=== PATIENT | female | born 1940 | race African-American/Black ===

== ENCOUNTER → 2020-03-22 | Emergency (ER) | payer MEDICARE, OTHER ==
[~2020-03-22] VITALS: Ht 172.7 cm; Wt 77.1 kg
[~2020-03-22] MED LIST: POTASSIUM CHL 20 Meq TABLET PO ONE
[2020-03-22 20:17] LABS: Basophils # (auto) 0 10 ^3/uL (0-0.2); Basophils % (auto) 0.1 % (0.0-2.0); Eosinophils # (auto) 0.1 10 ^3/uL (0-0.8); Eosinophils % (auto) 1.1 % (0.0-7.0); Hematocrit 43.7 % (36.0-46.0); Lymphocytes # (auto) 2.8 10 ^3/uL (0.4-5.4); Lymphocytes % (auto) 33.2 % (10.0-50.0); Mean Corpuscular Hemoglobin 28.6 pg (28.0-32.0); Mean Corpuscular Hgb Conc. 32.1 g/dL (32.0-36.0); Mean Corpuscular Volume 89.1 fL (80.0-100.0); Monocytes # (auto) 0.6 10 ^3/uL (0-1.3); Monocytes % (auto) 6.6 % (0.0-12.0); Neutrophils # (auto) 4.9 10 ^3/uL (1.6-8.6); Platelet Count (auto) 233 10^3/uL (140-450); Red Cell Distribution Width 13.8 % (11.8-14.3); White Blood Cell 8.3 10^3/uL (4.4-10.8)
[2020-03-22 20:31] LABS: INR 1.06 (0.9-1.15); Partial Thromboplastin Time 29.3 sec (23.64-32.05)
[2020-03-22 20:34] LABS: Albumin 4.1 g/dL (3.4-5.0); Anion Gap 5 (5-15); Blood Urea Nitrogen 8 mg/dL (7-18); Calcium 8.5 mg/dL (8.5-10.1); Carbon Dioxide 30 mmol/L (21-32); Chloride 101 mmol/L (98-107); Glucose 131 mg/dL (74-106); Magnesium 2.4 mg/dL (1.6-2.6); Potassium 3.1 mmol/L (3.5-5.1); Sodium 136 mmol/L (136-145)
[2020-03-22 20:40] LABS: Alanine Aminotransferase 28 U/L (13-56); Alkaline Phosphatase 96 U/L (45-117); Aspartate Aminotransferase 23 U/L (15-37); BUN/Creatinine Ratio 9.8; Bilirubin, Total 0.2 mg/dL (0.2-1.0); GFR African American 87 mL/min; GFR Non-African American 72 mL/min; Total Protein 8.8 g/dL (6.4-8.2)
[2020-03-22 22:44] VITALS: BP 162/90
== END | disposition home or self-care (01) ==
LOC: ER 14:53 → EDBD 14:53
DX: E87.6 Hypokalemia (principal); R42 Dizziness and giddiness; I10 Essential (primary) hypertension
CPT/HCPCS: 36415; 70450; 71045; 71250; 80053; 83735; 84484; 85025; 85610; 85730; 93005

== ENCOUNTER 2023-07-13 10:51 | Emergency (ER) | payer MEDICARE ==
[~2023-07-13] VITALS: Ht 167.6 cm; Wt 59.3 kg
[~2023-07-13 10:51] MED LIST changes: +MELO7.5T7 PO; -POTASSIUM CHL 20 Meq TABLET PO ONE
[2023-07-13 12:18] VITALS: BP 138/90; PULSE 61; RESP 16; TEMP 99.1; O2SAT 99
[2023-07-13] MEDS ORDERED: ACET-1080 PO (12:51)
[2023-07-13] MEDS ORDERED: PRED20TA2 PO (12:51)
[2023-07-13] MEDS ORDERED: HYDROcodone-ACET 5/325MG TAB PO ONE (13:00)
== END 2023-07-13 13:10 | disposition home or self-care (01) ==
LOC: ER 10:51
DX: M51.16 Intervertebral disc disorders with radiculopathy, lumbar region (principal); M25.552 Pain in left hip; I10 Essential (primary) hypertension; Z98.51 Tubal ligation status
CPT/HCPCS: 72100

== ENCOUNTER → 2024-10-21 | Outpatient (CLI) | payer MEDICARE ==
[~2024-10-21] MED LIST changes: +ACET-1080 PO; +PRED20TA2 PO
[2024-10-21 10:42] LABS: Basophils # (auto) 0.1 10 ^3/uL (0-0.2); Basophils % (auto) 0.8 % (0.0-2.0); Eosinophils # (auto) 0.1 10 ^3/uL (0-0.8); Eosinophils % (auto) 1.2 % (0.0-7.0); Hematocrit 41.3 % (36.0-46.0); Hemoglobin 13.6 g/dL (12.2-16.2); Lymphocytes # (auto) 2.3 10 ^3/uL (0.4-5.4); Lymphocytes % (auto) 27.6 % (10.0-50.0); Mean Corpuscular Hemoglobin 29.9 pg (28.0-32.0); Mean Corpuscular Hgb Conc. 32.9 g/dL (32.0-36.0); Mean Corpuscular Volume 90.7 fL (80.0-100.0); Monocytes # (auto) 0.6 10 ^3/uL (0-1.3); Monocytes % (auto) 6.8 % (0.0-12.0); Neutrophils # (auto) 5.3 10 ^3/uL (1.6-8.6); Neutrophils % (auto) 63.6 % (37.0-80.0); Platelet Count (auto) 199 10^3/uL (140-450); Red Blood Cells 4.56 10^6/uL (4.0-5.20); Red Cell Distribution Width 14.1 % (11.8-14.3); White Blood Cell 8.3 10^3/uL (4.4-10.8)
[2024-10-21 11:01] LABS: Alanine Aminotransferase 25 U/L (7-40); Albumin 4.3 g/dL (3.2-4.8); Alkaline Phosphatase 78 U/L (46-116); Anion Gap 6 (5-15); Aspartate Aminotransferase 28 U/L (13-40); BUN/Creatinine Ratio 12.6 (10.0-20.0); Blood Urea Nitrogen 12 mg/dL (9-23); Calcium 9.9 mg/dL (8.7-10.4); Chloride 104 mmol/L (98-107); Cholesterol 190 mg/dL (< 200); Glucose 84 mg/dL (74-106); Magnesium 2.1 mg/dL (1.6-2.6); Potassium 4.2 mmol/L (3.5-5.1); Sodium 142 mmol/L (136-145); Triglycerides 94 mg/dL (< 150)
[2024-10-21 11:02] LABS: Bilirubin, Total 0.5 mg/dL (0.2-1.0); Carbon Dioxide 32 mmol/L (20-31); HDL Cholesterol 60 mg/dL (40-59); LDL Cholesterol 126 mg/dL (< 100); Total Protein 7.2 g/dL (5.7-8.2)
[2024-10-21 11:14] LABS: Urine Bacteria FEW /hpf (None Seen); Urine Blood Negative /uL (Negative); Urine Budding Yeast MANY /hpf (None Seen); Urine Clarity Turbid (Clear); Urine Color Yellow (Yellow); Urine Mucus FEW (None Seen); Urine Protein, UAD TRACE (Negative); Urine Specific Gravity 1.016 (1.001-1.035); Urine Squamous Epithelial Cell FEW /hpf (<5); Urine Urobilinogen Normal (Negative); Urine WBC 151 /hpf (0 - 5); Urine WBC Clumps PRESENT /hpf (None Seen)
[2024-10-21 11:22] LABS: Erythrocyte Sedimentation Rate 7 mm/hr (0-20)
[2024-10-21 11:40] LABS: T3 Total 0.85 ng/mL (0.60-1.81)
[2024-10-21 11:41] LABS: Free T4 (Free Thyroxine) 1.01 ng/dL (0.89-1.76)
[2024-10-21 12:13] LABS: Folate (Folic Acid) 45.56 ng/mL (>5.38)
[2024-10-22 10:06] LABS: RPR Non Reactive (Non Reactive)
== END | disposition home or self-care (01) ==
LOC: LAB 09:11
PROVIDERS: ATTEND Internal Medicine
DX: I10 Essential (primary) hypertension (principal); G31.89 Other specified degenerative diseases of nervous system
CPT/HCPCS: 36415; 80053; 80061; 81001; 82607; 82746; 83735; 84439; 84443; 84480; 85025; 85652; 86592

== ENCOUNTER 2025-05-01 10:42 | Outpatient (CLI) | payer MEDICARE | END 2025-05-01 17:00 | disposition home or self-care (01) | LOC: LAB 10:42 | PROVIDERS: ATTEND Internal Medicine | DX: I10 Essential (primary) hypertension (principal) | CPT/HCPCS: 36415; 84443 ==